=== PATIENT | male | born 1955 | race Caucasian/White ===

== ENCOUNTER 2020-12-21 09:12 | Outpatient (CLI) | payer MEDICARE, OTHER, SELFPAY | END 2020-12-21 09:13 | disposition home or self-care (01) | LOC: ANHCOVIDVC 09:12 | PROVIDERS: PCP Family Medicine | DX: Z23 Encounter for immunization (principal) | CPT/HCPCS: 0001A; 91300 ==

== ENCOUNTER 2021-01-11 09:11 | Outpatient (CLI) | payer MEDICARE, OTHER, SELFPAY | END 2021-01-11 09:12 | disposition home or self-care (01) | LOC: ANHCOVIDVC 09:11 | PROVIDERS: PCP Family Medicine | DX: Z23 Encounter for immunization (principal) | CPT/HCPCS: 0002A; 91300 ==

== ENCOUNTER → 2021-03-01 08:18 | Outpatient (CLI) | payer MEDICARE, OTHER, SELFPAY ==
--- NOTE | ~2021-03-01 | XR_ITS ---
XR foot LT 2V DATE: 03/01/2021 08:33 INDICATION: Mid left foot pain. No known injury. TECHNIQUE: AP and lateral views COMPARISON: None FINDINGS: There is slight plantar and posterior calcaneal enthesopathy. No fracture or dislocation, periosteal reaction or bone destruction. No erosive changes. Joint spaces are relatively preserved. IMPRESSION: Slight plantar and posterior calcaneal enthesopathy Reviewed, dictated and finalized at location D.
== END ==
PROVIDERS: PCP Family Medicine; Visit Provider Physician Assistant Medical
DX: M77.32 Calcaneal spur, left foot (principal)
CPT/HCPCS: 73620

== ENCOUNTER 2022-03-31 09:03 | Outpatient (CLI) | payer MEDICARE, OTHER, SELFPAY ==
--- NOTE | ~2022-03-31 | XR_ITS ---
XR chest 2V 03/31/2022 09:34 Indication: Shortness of breath. Procedure: 2 view chest Comparison: 07/31/2016 Findings: Heart size normal. No focal air space disease, pulmonary edema, pleural effusion or suspect ed pneumothorax. There is calcified granuloma right lung base. Impression: 1: No acute cardiopulmonary disease. Reviewed, dictated and finalized at location A. Impression: 1: No acute cardiopulmonary disease.
[2022-03-31 09:31] LABS: Hemoglobin 13.9 g/dL (14.0-18.0); Mean Corpuscular HGB Conc 33.1 g/dl (32-36); Mean Corpuscular Hemoglobin 31.3 pg (26-34); Mean Corpuscular Volume 94.6 fl (80-100); Mean Platelet Volume 9.7 fl (7.4-10.4); Platelet Count Result 193 k/mm3 (150-375); Red Blood Count 4.44 M/mm3 (4.6-6.20); Red Cell Distribution Width 13.4 % (11.5-14.5); White Blood Count 9.1 K/mm3 (4.5-10.0)
--- NOTE | 2022-03-31 09:38 | ECG_ITS ---
Measurements Intervals [place] Rate: 54 P: 62 [place]: 173 QRS: -20 QRSD: 95 T: 43 QT: 424 QTc: 403 Interpretive Statements SINUS BRADYCARDIA LEFT AXIS DEVIATION ABNORMAL ECG NO PREVIOUS ECG AVAILABLE FOR COMPARISON Electronically Signed On 03-31-2022 14:40:28 CDT by Damien Carrillo M.D.
[2022-03-31 09:48] LABS: Anion Gap 4 mmol/L (8-16); Blood Urea Nitrogen 17 mg/dL (9-20); Calcium 8.6 mg/dL (8.4-10.2); Carbon Dioxide 27 mmol/L (22-30); Chloride 108 mmol/L (98-107); Cholesterol 164 mg/dL (0-200); Estimated Glomerular Filt Rate > 60; Glucose 104 mg/dL (65-110); HDL Direct 36 mg/dL; Sodium 139 mmol/L (137-145); Triglycerides 79 mg/dL (<150)
[2022-03-31 10:03] LABS: LDL Cholesterol Direct 98 mg/dL
[2022-03-31 10:18] LABS: Prostate Specific Antigen 1.3 ng/mL (< OR = 4.0)
[2022-04-05 13:58] LABS: Testosterone Free 35.3 pg/mL (35.0-155.0); Testosterone Total 228 ng/dL (250-1100)
== END 2022-03-31 09:04 | disposition home or self-care (01) ==
PROVIDERS: PCP Family Medicine; Visit Provider Nurse Practitioner Family
DX: E78.6 Lipoprotein deficiency (principal); Z12.5 Encounter for screening for malignant neoplasm of prostate; R73.01 Impaired fasting glucose; R53.83 Other fatigue; R06.02 Shortness of breath
CPT/HCPCS: 36415; 71046; 80048; 80061; 84153; 84402; 84403; 84443; 85027; 93005; G0103

== ENCOUNTER 2022-04-21 08:38 | Outpatient (CLI) | payer MEDICARE, OTHER, SELFPAY ==
--- NOTE | ~2022-04-21 | NM_ITS ---
EXAMINATION: NM tam stress w perfusion DATE: 04/21/2022 10:56 INDICATION: Dyspnea on exertion TECHNIQUE: Rest images were obtained following intravenous administration of 9.8 mCi Tc99m tetrofosmi n (Myoview). The patient was infused intravenously with Lexiscan (Regadenoson). Then, 30.74 mCi Tc99m tetrofosmin (Myoview) was administered intravenously, and stress images were obtained in supine posi tion. Additional post stress images were obtained in prone position.. Data was reconstructed into danae rt axis and horizontal and vertical long axis SPECT images. Gated SPECT images were also obtained. COMPARISON: None. FINDINGS: There are likely artifactual perfusion defects on the supine imaging at the mid inferoseptal and apic al septal segments which normalizes with prone imaging. Mild fixed perfusion defect on both rest and stress images consistent with infarct which extends into the apical inferior and apical lateral segm ents which are partially reversible consistent with combination of infarct and ischemia. There is robert e additional mild reversible ischemia in both the supine and prone post stress images at the apical a nterior segment. There is normal left ventricular chamber size, wall motion and ejection fraction. Left ventricular ejection fraction measures 57%. IMPRESSION: 1. Mild nonreversible infarct at the apical, apical inferior and apical lateral segments with superim posed mild reversible ischemia at the both apical inferior apical lateral segments and additional mil d ischemia at the apical anterior segment. 2. Left ventricular ejection fraction measuring 57%. Reviewed, dictated and finalized at location A. IMPRESSION: 1. Mild nonreversible infarct at the apical, apical inferior and apical lateral segments with superimposed mild reversible ischemia at the both apical inferio r apical lateral segments and additional mild ischemia at the apical anterior s egment. 2. Left ventricular ejection fraction measuring 57%.
--- NOTE | 2022-04-21 08:48 | EST_ITS ---
Patient Info Name: Tito Grubbs Age: 66 years : 1955 Gender: Male Ht: 67 in Wt: 165 lbs BSA: 1.89 m2 HR: 75 bpm BP: 142 / 92 mmHg Exam Date: 04/21/2022 9:47 AM Exam Location: [facility] Stress Patient Status: Outpatient Admit Date: 04/21/2022 Staff Ordering Physician: Katie Quintanilla Attending Provider: Katie Quintanilla Exam Type: CA stress tam w NM Study Info Indications R06.02 - Shortness of breath A regadenoson stress test was performed. Summary 1. 1. Negative lexiscan stress test for ischemic ST changes by ECG criteria. 2. 2. Baseline hypertension. 3. 3. Nuclear scan to follow and will be reported separately. Please correlate with it. 4. 4. Patient informed of the above results. Protocol: Lexiscan Stress ECG Details Stage: REST Duration (min): 2 min : 43 sec HR (bpm): 66 SBP (mmHg): 142 DBP (mmHg): 92 Stage: REST Duration (min): 17 min : 41 sec HR (bpm): 64 SBP (mmHg): 142 DBP (mmHg): 92 Stage: STAGE 1 Duration (min): 0 min : 59 sec HR (bpm): 83 SBP (mmHg): 130 DBP (mmHg): 88 Stage: RECOVERY Duration (min): 1 min : 0 sec HR (bpm): 86 SBP (mmHg): 130 DBP (mmHg): 88 Stage: RECOVERY Duration (min): 2 min : 0 sec HR (bpm): 83 SBP (mmHg): 130 DBP (mmHg): 88 Stage: RECOVERY Duration (min): 3 min : 0 sec HR (bpm): 78 SBP (mmHg): 140 DBP (mmHg): 89 Stage: RECOVERY Duration (min): 3 min : 4 sec HR (bpm): 78 SBP (mmHg): 140 DBP (mmHg): 89 Rest HR: 64 bpm Peak HR: 89 bpm Rest Sys BP: 142 mmHg Peak Sys BP: 140 mmHg Max Pred HR: 152 bpm % Max Pred HR: 59 % Target HR: 129 bpm Max RPP: 12,460 bpm*mmHg Termination Reason: Completed protocol Cardiac Symptoms: Shortness of breath Total Time: 1 min : 0 sec Rest Brannon BP: 92 mmHg Peak Brannon BP: 89 mmHg Total Dose: 0.4 mg Resting ECG Sinus rhythm, IRBBB. Stress ECG No ST changes. Arrhythmias None. Report Signatures
== END 2022-04-21 08:39 | disposition home or self-care (01) ==
PROVIDERS: PCP Family Medicine; Visit Provider Nurse Practitioner Family
DX: R06.02 Shortness of breath (principal); R94.31 Abnormal electrocardiogram [ECG] [EKG]
CPT/HCPCS: 78452; 93017; A9502; J2785

== ENCOUNTER 2022-06-14 09:35 | Outpatient (CLI) | payer MEDICARE, OTHER, SELFPAY ==
[2022-06-14 10:07] LABS: Hematocrit 49.8 % (42.0-52.0); Hemoglobin 16.4 g/dL (14.0-18.0)
[2022-06-20 13:45] LABS: Testosterone Free 240.5 pg/mL (35.0-155.0); Testosterone Total 1069 ng/dL (250-1100)
== END 2022-06-14 09:36 | disposition home or self-care (01) ==
PROVIDERS: PCP Family Medicine; Visit Provider Physician Assistant Medical
DX: R79.89 Other specified abnormal findings of blood chemistry (principal)
CPT/HCPCS: 36415; 84402; 84403; 85014; 85018

== ENCOUNTER 2022-10-05 08:25 | Outpatient (CLI) | payer MEDICARE, SELFPAY ==
[2022-10-05 09:26] LABS: Hematocrit 55.9 % (42.0-52.0); Hemoglobin 18.2 g/dL (14.0-18.0); Mean Corpuscular HGB Conc 32.6 g/dl (32-36); Mean Corpuscular Hemoglobin 30.4 pg (26-34); Mean Corpuscular Volume 93.5 fl (80-100); Platelet Count Result 198 k/mm3 (150-375); Red Blood Count 5.98 M/mm3 (4.6-6.20); Red Cell Distribution Width 15.4 % (11.5-14.5); White Blood Count 11.3 K/mm3 (4.5-10.0)
[2022-10-12 12:21] LABS: Testosterone Free 221.9 pg/mL (35.0-155.0); Testosterone Total 828 ng/dL (250-1100)
== END 2022-10-05 08:26 | disposition home or self-care (01) ==
PROVIDERS: PCP Family Medicine; Visit Provider Family Medicine
DX: D64.9 Anemia, unspecified (principal); R79.89 Other specified abnormal findings of blood chemistry
CPT/HCPCS: 36415; 84402; 84403; 85027

== ENCOUNTER 2022-11-20 09:27 | Outpatient (CLI) | payer MEDICARE, SELFPAY ==
[2022-11-20 10:00] LABS: Hematocrit 53.8 % (42.0-52.0); Hemoglobin 17.6 g/dL (14.0-18.0)
[2022-11-27 13:39] LABS: Testosterone Free 163.7 pg/mL (35.0-155.0); Testosterone Total 652 ng/dL (250-1100)
== END 2022-11-20 09:28 | disposition home or self-care (01) ==
LOC: ANHLAB 09:29
PROVIDERS: PCP Family Medicine; Visit Provider Family Medicine
DX: R79.89 Other specified abnormal findings of blood chemistry (principal)
CPT/HCPCS: 36415; 84402; 84403; 85014; 85018

== ENCOUNTER 2023-02-26 08:58 | Outpatient (CLI) | payer MEDICARE, SELFPAY ==
[2023-02-26 09:47] LABS: Hemoglobin 18.2 g/dL (14.0-18.0)
[2023-03-03 15:17] LABS: Testosterone Free 229.1 pg/mL (35.0-155.0); Testosterone Total 888 ng/dL (250-1100)
== END 2023-02-26 08:59 | disposition home or self-care (01) ==
PROVIDERS: PCP Family Medicine; Visit Provider Nurse Practitioner Family
DX: R79.89 Other specified abnormal findings of blood chemistry (principal)
CPT/HCPCS: 36415; 84402; 84403; 85014; 85018

== ENCOUNTER 2023-03-17 09:40 | Emergency (ER) | payer MEDICARE, SELFPAY ==
--- NOTE | ~2023-03-17 | XR_ITS ---
XR wrist LT min 3V DATE: 03/17/2023 10:03 INDICATION: Wrist injury, pain TECHNIQUE: 4 views COMPARISON: None FINDINGS: There is mild osteoarthritis at the first carpometacarpal joint and first digit interphalan geal joint. No fracture, dislocation, periosteal reaction or bone destruction is detected. IMPRESSION: No fracture or dislocation of the left wrist is detected Reviewed, dictated and finalized at location A.
--- NOTE | ~2023-03-17 | XR_ITS ---
XR hand LT min 3V DATE: 03/17/2023 10:03 INDICATION: Injury, pain TECHNIQUE: 3 views COMPARISON: None FINDINGS: There is prominent soft tissue swelling of the hand and to a lesser extent wrist. Mild osteoarthritis at the first carpometacarpal and multiple interphalangeal joints. IMPRESSION: Prominent soft tissue swelling No fracture or dislocation Polyarticular osteoarthritis Reviewed, dictated and finalized at location A.
[2023-03-17 09:40] VITALS: BP 147/70; PULSE 86; RESP 16; TEMP 36.4; O2SAT 97
--- NOTE | 2023-03-17 09:59 | ED.UPPEXIN ---
HPI - Extremity Injury (Upper) General Chief Complaint: Extremity Injury, Upper Stated Complaint: L HAND CRUSH INJURY Time Seen by Provider: 03/17/23 09:51 Source: patient Mode of arrival: ambulatory Limitations: no limitations History of Present Illness HPI narrative: 67-year-old male [id number] presents today with complaints of left hand injury prior to arrival. Patient states he was loading logs onto a trailer when 1 got away. Left hand got crushed in between 2 logs. Patient states full mobility after injury but currently there is significant swelling noted to the hand. Laceration noted to the base of the fourth digit on palmar side. Sensation intact. Capillary refill less than 3 seconds. complaint: injury to: left Other injuries: none Handedness: right Place: home Related Data Home Medications Medication Instructions Recorded Confirmed rosuvastatin 40 mg tablet 40 mg PO DAILY 03/05/23 03/05/23 Allergies Allergy/AdvReac Type Severity Reaction Status Date / Time Penicillins Allergy Unknown Unknown Verified 03/05/23 08:47 Review of Systems Review of Systems: CONSTITUTIONAL: Denies fever, chills, or sweats. CARDIOVASCULAR: Denies chest pain, palpitations, or edema. RESPIRATORY: Denies cough or dyspnea. SKIN: Denies rash or itching. MUSCULOSKELETAL: Swelling to left hand with laceration. Denies back pain. NEUROLOGIC: Denies headache, numbness, dizziness, or weakness. [facility] Past Medical History Medical History Acute pain of left knee Adult BMI 26.0-26.9 kg/sq m BMI 27.0-27.9,adult Coronary artery disease Dietary counseling and surveillance (04/29/18) Effusion, left knee Elevated fasting glucose Encounter for immunization Encounter for other specified surgical aftercare Encounter for screening for malignant neoplasm of prostate Erectile dysfunction Left knee DJD Left knee DJD Routine physical examination Screening for colon cancer Screening for diabetes mellitus Screening for lipid disorders Tobacco abuse Trigger middle finger of right hand Wheezing Surgical History Surgical History History of knee surgery Family History Family History Father Family history of heart disease in male family member before age 55 Acute myocardial infarction Heart disease Mother Glaucoma Sibling No problems noted. 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 HEAD: Normocephalic, atraumatic. NECK: Supple. No adenopathy or masses. CHEST: Clear to auscultation. No respiratory distress. No wheezes rales or rhonchi HEART: Regular rate and rhythm. No murmur heard. Normal peripheral pulses. EXTREMITIES: Left hand with significant swelling noted. Sensation intact. Capillary refill less than 3 seconds. Laceration noted to base of fourth digit on palmar side approx 3 cm. Lacertion to 5th digit lateral to nail without nail envolvement. Range of motion limited due to swelling. Skin tear to dorsal side of left hand. SKI
== END 2023-03-17 12:21 | disposition home or self-care (01) ==
PROVIDERS: Emergency Provider Nurse Practitioner Family; PCP Family Medicine
DX: S61.215A Laceration without foreign body of left ring finger without damage to nail, initial encounter (principal); W23.0XXA Caught, crushed, jammed, or pinched between moving objects, initial encounter; I25.10 Atherosclerotic heart disease of native coronary artery without angina pectoris; F17.290 Nicotine dependence, other tobacco product, uncomplicated
CPT/HCPCS: 12002; 73110; 73130; 99283

== ENCOUNTER 2023-03-19 09:47 | Outpatient (CLI) | payer MEDICARE, SELFPAY ==
--- NOTE | ~2023-03-19 | XR_ITS ---
Supine and upright views of the abdomen Clinical history: Hematuria, renal stone COMPARISON: 04/30/2018 Findings: Bowel gas pattern is nonspecific. No free air or bowel obstruction evident. There are proba ble right renal stones measuring up to 8 mm in diameter. Possible small left renal stones measuring u p to 3 mm. No abnormal mass lesion or calcification is seen. Osseous structures are intact. Impression: Probable bilateral nephrolithiasis, as detailed above, right stones larger than left. Reviewed, dictated and finalized at location M. Impression: Probable bilateral nephrolithiasis, as detailed above, right stones larger than left.
== END 2023-03-19 09:48 | disposition home or self-care (01) ==
PROVIDERS: PCP Family Medicine; Visit Provider Nurse Practitioner Family
DX: R31.9 Hematuria, unspecified (principal)
CPT/HCPCS: 74018

== ENCOUNTER 2023-08-10 07:52 | Outpatient (CLI) | payer MEDICARE, SELFPAY ==
--- NOTE | ~2023-08-10 | CT_ITS ---
EXAMINATION: CT abdomen pelvis wo con DATE: 08/10/2023 08:13 INDICATION: Kidney stones TECHNIQUE: Computed tomography (CT) of the abdomen and pelvis was performed without intravenous contr ast. Automated exposure control and iterative reconstruction technique were employed. Exam dose: 442 .08 mGy-cm total exam DLP. COMPARISON: 03/19/2023 KUB FINDINGS: Right lower lobe calcified pulmonary granuloma. The lung bases are clear of infiltrate or c onsolidation. Normal heart size. No pericardial or pleural effusion. Small sliding hiatal hernia. The liver, gallbladder, bile ducts, spleen, pancreas, pancreatic duct, and adrenal glands are unremar kable on this limited noncontrast examination. Multiple bilateral nonobstructing renal calculi, slightly more numerous and larger on the right, the largest on the right measuring up to 6.9 by 9.2 mm with attenuation of 1304 Hounsfield units, the lar gest on the left approximately 2.2 x 6.5 mm. No ureteral calculus or hydroureteronephrosis. No renal mass lesion is evident. There is atherosclerotic calcification but normal caliber of the abdominal aorta and iliac and femora l arteries. No intraperitoneal or retroperitoneal or pelvic mass lesion or adenopathy or ascites. There is prostate enlargement and multiple prostate calcifications. The urinary bladder appears unrem arkable on this noncontrast examination. Diverticulosis of the left colon; no CT evidence of diverticulitis. No bowel obstruction, bowel wall thickening, pneumatosis or intraperitoneal free air. Small fat-containing umbilical hernia. Degenerative spurring of the thoracic and lumbar spine. Moderate degenerative disc disease at L4-5 an d severe degenerative disc disease at L5-S1. No suspicious osteolytic or osteoblastic lesions. IMPRESSION: Bilateral nonobstructive nephrolithiasis Small sliding hiatal hernia Diverticulosis of the colon; no CT evidence of diverticulitis Reviewed, dictated and finalized at Location A. Reviewed, dictated and finalized at location A.
--- NOTE | ~2023-08-10 | XR_ITS ---
XR abdomen/kub 1V 08/10/2023 08:29 Indication: Renal stone Procedure: KUB Comparison: 03/19/2023 Findings: There are bilateral renal stones. Largest in the right kidney measures 1 cm. Bowel gas augustine ha nonobstructive. Moderate lumbar spondylosis. There are prostate calcifications. Moderate osteoart hritis of the right hip. No acute osseous abnormality. Impression: 1: Bilateral nephrolithiasis. Reviewed, dictated and finalized at location B. Impression: 1: Bilateral nephrolithiasis.
== END 2023-08-10 07:53 | disposition home or self-care (01) ==
PROVIDERS: PCP Family Medicine; Referring Provider Urology; Visit Provider Nurse Practitioner Family
DX: N20.0 Calculus of kidney (principal); R31.9 Hematuria, unspecified; K44.9 Diaphragmatic hernia without obstruction or gangrene; K57.30 Diverticulosis of large intestine without perforation or abscess without bleeding
CPT/HCPCS: 74018; 74176

== ENCOUNTER 2023-09-17 08:35 | Outpatient (CLI) | payer MEDICARE, SELFPAY ==
--- NOTE | 2023-09-17 08:57 | ECG_ITS ---
Measurements Intervals [place] Rate: 76 P: 61 [place]: 150 QRS: -36 QRSD: 100 T: 43 QT: 368 QTc: 415 Interpretive Statements SINUS RHYTHM MARKED LEFT AXIS DEVIATION [QRS AXIS < -30] ABNORMAL ECG COMPARED TO ECG 03/31/2022 09:45:42 NO SIGNIFICANT DIFFERENCE Electronically Signed On 09-17-2023 15:13:36 RACK PRODUCTION WORKER by Damien Carrillo M.D.
[2023-09-17 09:30] LABS: Prothrombin Time 13.5 Seconds (11.1-14.7)
[2023-09-17 09:31] LABS: Partial Thromboplastin Time 29.9 SECONDS (22.3-36.8)
== END 2023-09-17 08:36 | disposition home or self-care (01) ==
PROVIDERS: PCP Family Medicine; Visit Provider Urology
DX: N20.0 Calculus of kidney (principal); E78.00 Pure hypercholesterolemia, unspecified; Z01.818 Encounter for other preprocedural examination
CPT/HCPCS: 36415; 85610; 85730; 87086; 93005

== ENCOUNTER 2023-09-21 03:02 | Day surgery (SDC) | payer MEDICARE, SELFPAY ==
[2023-09-13 15:11] VITALS: BMI 26.6
--- NOTE | 2023-09-13 15:24 | PC.NURSE ---
Addendum entered by Christy Villareal RN 09/14/23 12:34: HOLD ASPIRIN FOR 7 DAYS PRIOR TO PROCEDURE, LAST DOSE TO TAKE WOULD BE 09/14. ALSO LEFT VOICE MAIL FOR PT AT [phone]. Original Note: Report to the Outpatient Waiting Room, entrance under the green pavilion located off [facility], at time _0630_ on date _09/21/23_. Planned Procedure Time: _0830_. Time changes happen often and if your time is changed the preop area will call you the afternoon before. - You and your visitor will be asked to self-screen and do not enter if you have any COVID symptoms. - A mask is optional within the hospital at this time. Patients may have clear liquids (water, carbonated beverages, clear teas, apple juice) until 3 hours prior to surgery (0530 AM) with a maximum of 20 ounces. - No food from midnight until time of surgery Take the following medications with a SIP of water the morning of surgery: __NONE____ DO NOT STOP ANY OF YOUR OTHER PRESCRIPTION MEDICATIONS PRIOR TO SURGERY ?EXCEPT THE FOLLOWING Medications to discontinue per physician __NONE____, Date to take last dose Please no make-up, nail kinyarwanda, hairspray, perfume, deodorant, or body powder the day of surgery. No jewelry (including any body piercings) or valuables the day of surgery, leave them at home. Please take a shower or bath the night before, or the morning of, surgery with an antibacterial soap. Wear comfortable, loose fitting clothing. - Jewelry must be removed prior to entering the operating room. Rings and piercings that are not removed may be cut off. - The hospital will not accept responsibility for valuables. - Please leave all valuables, including medications, at home the day of surgery. If you are going home after surgery, a licensed sales route driver helper must drive you home. - NO public transportation without another adult if you receive anesthesia. - We recommend that an adult stay with you for 24 hours following discharge. - We also recommend that you do not drive, make important decision, drink alcoholic beverages, or take any drugs that were not prescribed by your health care provider for at least 24 hours after your discharge time. Follow any additional instructions given to you from your surgeon. If you or anyone in your household have experienced Covid symptoms in the past week, please notify your surgeon or the nurse liaison at the phone number below for possible testing. Telephone instructions given to _PATIENT_and asked if any additional questions and then verbalized understanding. Patient advised to call surgeon office or pre surgery nurse liaison [phone] if any additional questions.
--- NOTE | ~2023-09-21 | XR_ITS ---
Supine and upright views of the abdomen Clinical history: Lithotripsy COMPARISON: 08/10/2023 Findings: Bowel gas pattern is nonspecific. No evidence for obstruction or free air. Right nephrolith iasis is unchanged. Suspected very small left renal stones present. Osseous structures are intact. Impression: Bilateral nephrolithiasis, right worse than left. Reviewed, dictated and finalized at [facility]. ATTENDANT Impression: Bilateral nephrolithiasis, right worse than left.
[2023-09-21 07:11] VITALS: BP 122/80; PULSE 81; RESP 16; TEMP 36.9; O2SAT 95
--- NOTE | 2023-09-21 07:19 | WPDHPUPDATE1 ---
History and Physical Update Update Date/Time: 09/21/23 07:19 History and Physical has been reviewed, including an updated exam of the patient. There are NO changes in the patient's condition. Risks, benefits, and alternatives have been discussed and questions answered. Patient agrees to proceed with procedure. Proceed with right renal eswl
[2023-09-21] MEDS: LACTATED RINGERS 1,000 ML 30 ML IV CONT (07:32)
--- NOTE | 2023-09-21 07:54 | WPDANESEPPF ---
Anes - Initial Pre Proc Eval Procedure: Operation Date: 09/21/23 08:30 Proposed Procedures p Right Renal Extracorporeal Shock Wave Lithotripsy - Bassam Cummings MD Date/Time: 09/21/23 07:54 Surgeon: Bassam Cummings MD Pre Op Diagnosis: right renal stone Patient Data Age: 68 Gender: M Height: 1.7 m Weight: 78 kg Last Vital Signs Temp 36.9 C 09/21/23 07:11 Pulse 81 09/21/23 07:11 Resp 16 09/21/23 07:11 BP 122/80 09/21/23 07:11 Pulse Ox 95 09/21/23 07:11 O2 Del Method Room Air 09/21/23 07:11 Allergies Allergy/AdvReac Type Severity Reaction Status Date / Time Penicillins Allergy Unknown Unknown- Verified 09/21/23 06:32 A CHILD Home Medications Medication Instructions Recorded Confirmed Type rosuvastatin 40 mg tablet 40 mg PO DAILY 03/05/23 09/13/23 History sildenafil 100 mg tablet 100 mg PO DAILY PRN sexual 03/05/23 09/13/23 Rx activity #30 tabs aspirin 81 mg tablet,delayed 81 mg PO DAILY 08/29/23 09/13/23 History release (Adult Aspirin Regimen) testosterone cypionate 200 mg/mL 75 mg IM .every 2 weeks 09/13/23 09/13/23 History intramuscular oil Patient hx anesthesia problems: none Family hx anesthesia problems: none Results Review: All pre-operative results and documents have been reviewed as part of the pre-operative evaluation. [facility] Past Medical History Medical History Acute pain of left knee BMI 26.0-26.9,adult Coronary artery disease Dietary counseling and surveillance (04/29/18) Effusion, left knee Elevated blood pressure reading Elevated fasting glucose Encounter for immunization Encounter for other specified surgical aftercare Encounter for screening for malignant neoplasm of prostate Erectile dysfunction Left knee DJD Routine physical examination Screening for colon cancer Screening for diabetes mellitus Screening for lipid disorders Tobacco abuse Trigger middle finger of right hand Wheezing Surgical History Surgical History History of knee surgery Family History Family History Father Family history of heart disease in male family member before age 55 Acute myocardial infarction Heart disease Mother Glaucoma Sibling No problems noted. Social History Social History Smoking status: Current every day smoker Tobacco type: cigars Second hand tobacco smoke exposure: Yes Additional smoking assessment comments: 3 CIGARS/DAY/10YRS Alcohol intake: never Substance use: never Substance use type: does not use Lack of Transportation: No Lack of Food: Never True Current Housing: I Have Housing Concerned About Future Housing: No Difficulty Paying Gas/Electric Bills: No Difficulty Paying for Meds: No Currently Unemployed: No Education: High School Diploma/GED Difficulty w/ Childcare or Family Care: No Living arrangements: alone Occupation/Education: retired 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 Informed Consent: The patient's anesthetic plan and its attendant risks and benefits were discussed with the patient/family/POA. Questions were solicited and ans
[2023-09-21] MEDS: ceFAZolin 2 GM/D5W 50 ML 2 GM/50 ML BAG IVPB (08:34)
--- NOTE | 2023-09-21 09:16 | W.PM.PROC2 ---
Procedure Note - Detailed Date of Procedure 09/21/23 Pre-op Diagnosis right renal stone-2 stones each measuring 8-10 mm Post-op Diagnosis Same Procedure Performed Lithotripsy of right renal calculi-1600 shocks to upper pole stone, 900 shocks to more lateral stone Surgeon Bassam Cummings MD Anesthesia General Description of Procedure Patient is taken to the operative suite correctly identified. Once anesthesia was obtained the upper pole stone was localized in both planes. After 1600 shocks there appeared to be fairly good fragmentation. The more lateral stone was then visualized in both planes. The remaining 900 shocks were given to the stone. Patient tolerated procedure well without any complications was taken recovery stable condition. He will follow-up in 7-10 days with KUB. This completes dictation. Please send a copy of op note to my office Estimated Blood Loss 0 Drains No Packing No Pathology None sent Complications No immediate complications Condition Stable Disposition PACU
[2023-09-21 09:27] VITALS: BP 132/85; PULSE 90; RESP 16; TEMP 36.3; O2SAT 98
[2023-09-21 09:35] VITALS: BP 121/93; PULSE 85; RESP 21; O2SAT 99
[2023-09-21 09:50] VITALS: BP 118/86; PULSE 84; RESP 12; O2SAT 99
[2023-09-21 10:00] VITALS: BP 134/88; PULSE 79; RESP 12
[2023-09-21 10:30] VITALS: BP 124/90; PULSE 7; RESP 12
== END 2023-09-21 10:42 | disposition home or self-care (01) ==
PROVIDERS: PCP Family Medicine; Visit Provider Urology
PROC: (CPT 50590; principal; 2023-09-21 08:30)
DX: N20.0 Calculus of kidney (principal); I25.10 Atherosclerotic heart disease of native coronary artery without angina pectoris; Z79.82 Long term (current) use of aspirin; F17.290 Nicotine dependence, other tobacco product, uncomplicated
CPT/HCPCS: 50590; 74018; J0690; J1100; J2371; J2405; J2704; J3010; J7120

== ENCOUNTER 2023-10-05 11:05 | Outpatient (CLI) | payer MEDICARE, SELFPAY ==
--- NOTE | ~2023-10-05 | XR_ITS ---
EXAMINATION: XR abdomen/kub 1V INDICATION: Calcium kidney stone TECHNIQUE: Supine views of the abdomen were obtained on 2 radiographs. COMPARISON: 09/21/2023 FINDINGS: The previously identified stones of the right kidney appear to be fragmented and less dense than on the comparison examination, consistent with interval lithotripsy. No stone fragments are kellen ntified along the expected course of the right ureter or in the urinary bladder. Punctate left nephro lithiasis appears unchanged. There are calcifications of the prostate. A bone island is noted in the left sacrum. There is moderate osteoarthritis of the right hip and mild osteoarthritis of the left hi p. The bowel gas pattern is normal. IMPRESSION: 1. Fragmentation and decreased density of the previously identified right kidney stones, likely due t o interval lithotripsy. 2. Left nephrolithiasis. Reviewed, dictated and finalized at location B. IFIED NURSES AIDE IMPRESSION: 1. Fragmentation and decreased density of the previously identified right kidne y stones, likely due to interval lithotripsy. 2. Left nephrolithiasis.
== END 2023-10-05 11:06 | disposition home or self-care (01) ==
PROVIDERS: PCP Family Medicine; Visit Provider Urology
DX: N20.0 Calculus of kidney (principal)
CPT/HCPCS: 74018

== ENCOUNTER 2023-11-02 10:52 | Outpatient (CLI) | payer MEDICARE, SELFPAY ==
--- NOTE | ~2023-11-02 | XR_ITS ---
EXAMINATION: XR abdomen/kub 1V INDICATION: Calcium kidney stone TECHNIQUE: Supine views of the abdomen were obtained on 2 radiographs. COMPARISON: 10/05/2023 FINDINGS: There are groups of small calcifications in the right kidney with individual calcifications measuring up to 3 mm in size. There is a possible 2 mm stone in the proximal right ureter at the lev el of the right L3 transverse process. Left kidney stones measure up to 2 mm. Again noted is a bone i sland in the left sacrum. There is moderate osteoarthritis of the right hip and mild osteoarthritis o f the left hip. The bowel gas pattern is normal. IMPRESSION: 1. Right nephrolithiasis with possible stone in the proximal right ureter. Correlate for right flank pain. 2. Left nephrolithiasis. Reviewed, dictated and finalized at location F. IST INFORMATION ASSISTANT IMPRESSION: 1. Right nephrolithiasis with possible stone in the proximal right ureter. Colleen elate for right flank pain. 2. Left nephrolithiasis.
== END 2023-11-02 10:53 | disposition home or self-care (01) ==
PROVIDERS: PCP Family Medicine; Visit Provider Urology
DX: N20.0 Calculus of kidney (principal)
CPT/HCPCS: 74018

== ENCOUNTER 2023-12-14 11:11 | Outpatient (CLI) | payer MEDICARE, SELFPAY ==
--- NOTE | ~2023-12-14 | XR_ITS ---
EXAMINATION: XR abdomen/kub 1V DATE: 12/14/2023 11:30 INDICATION: Calcium kidney stone. TECHNIQUE: A supine view of the abdomen on 2 radiographs was obtained. COMPARISON: CT abdomen and pelvis 08/10/2023 FINDINGS: There are no dilated loops of bowel. There is a moderate volume of stool in the colon. Torrey l obscures the kidneys. There are least 3 stones in right kidney measuring up to 3 mm. There are leas t 3 stones in left kidney measuring up to 3 mm. IMPRESSION: 1. Bilateral kidney stones. Reviewed, dictated and finalized at location A. [facility] IMPRESSION: 1. Bilateral kidney stones.
== END 2023-12-14 11:12 | disposition home or self-care (01) ==
LOC: ANHIMG 11:12
PROVIDERS: PCP Family Medicine; Visit Provider Urology
DX: N20.0 Calculus of kidney (principal)
CPT/HCPCS: 74018

== ENCOUNTER 2024-02-19 08:38 | Outpatient (CLI) | payer MEDICARE, SELFPAY ==
[2024-02-19 09:24] LABS: Basophils Absolute Auto 0.1 K/mm3 (0.0-0.1); Basophils Percent Auto 0.7 % (0.2-1.2); Eosinophils Absolute Auto 0.1 K/mm3 (0-0.3); Eosinophils Percent Auto 0.9 % (0-4.4); Hematocrit 55.3 % (42.0-52.0); Hemoglobin 18.8 g/dL (14.0-18.0); Immature Granulocyte Absolute 0.05 K/mm3 (0.00-0.031); Immature Granulocyte Percent A 0.5 % (0-0.5); Lymphocytes Absolute Auto 1.46 K/mm3 (0.9-3.2); Lymphocytes Percent Auto 14.3 % (18.3-44.2); Mean Corpuscular Hemoglobin 31.8 pg (26-34); Mean Corpuscular Volume 93.6 fl (80-100); Mean Platelet Volume 9.9 fl (7.4-10.4); Monocytes Absolute Auto 1.1 K/mm3 (0.1-0.6); Monocytes Percent Auto 10.8 % (2.6-8.5); Neutrophils Absolute Auto 7.4 K/mm3 (1.3-6.7); Neutrophils Percent Auto 72.8 % (45.5-73.1); Platelet Count Result 163 k/mm3 (150-375); Red Blood Count 5.91 M/mm3 (4.6-6.20); Red Cell Distribution Width 13.9 % (11.5-14.5); White Blood Count 10.2 K/mm3 (4.5-10.0)
[2024-02-19 09:43] LABS: Alanine Aminotransferase 42 U/L (6-50); Albumin Level 4.5 g/dL (3.5-5.1); Alkaline Phosphatase 59 U/L (38-126); Anion Gap 5 mmol/L (4-12); Aspartate Amino Transferase 27 U/L (17-59); Bilirubin,Total 0.9 mg/dL (0.2-1.3); Blood Urea Nitrogen 15 mg/dL (9-20); Calcium 9.5 mg/dL (8.4-10.2); Carbon Dioxide 27 mmol/L (22-30); Chloride 107 mmol/L (98-107); Cholesterol 101 mg/dL (0-200); Estimated Glomerular Filt Rate > 60; Glucose 104 mg/dL (65-110); HDL Direct 37 mg/dL; Potassium 4.1 mmol/L (3.4-5.0); Sodium 139 mmol/L (137-145); Triglycerides 77 mg/dL (<150)
[2024-02-19 09:51] LABS: LDL Cholesterol Direct 58 mg/dL
[2024-02-19 10:10] LABS: Prostate Specific Antigen 2.8 ng/mL (< OR = 4.0)
[2024-02-22 20:58] LABS: Testosterone Total 383 ng/dL (250-1100)
== END 2024-02-19 08:39 | disposition home or self-care (01) ==
PROVIDERS: PCP Family Medicine; Visit Provider Physician Assistant
DX: D64.9 Anemia, unspecified (principal); I10 Essential (primary) hypertension; R73.01 Impaired fasting glucose; Z79.890 Hormone replacement therapy; Z12.5 Encounter for screening for malignant neoplasm of prostate; I25.10 Atherosclerotic heart disease of native coronary artery without angina pectoris
CPT/HCPCS: 36415; 80053; 80061; 84153; 84403; 84443; 85025; G0103

== ENCOUNTER 2024-03-19 11:20 | Outpatient (CLI) | payer MEDICARE, SELFPAY ==
[2024-03-19 12:49] LABS: Basophils Absolute Auto 0.1 K/mm3 (0.0-0.1); Basophils Percent Auto 0.6 % (0.2-1.2); Eosinophils Absolute Auto 0.1 K/mm3 (0-0.3); Eosinophils Percent Auto 0.9 % (0-4.4); Hematocrit 52.8 % (42.0-52.0); Hemoglobin 17.7 g/dL (14.0-18.0); Immature Granulocyte Absolute 0.04 K/mm3 (0.00-0.031); Immature Granulocyte Percent A 0.4 % (0-0.5); Lymphocytes Absolute Auto 1.67 K/mm3 (0.9-3.2); Lymphocytes Percent Auto 17.5 % (18.3-44.2); Mean Corpuscular HGB Conc 33.5 g/dl (32-36); Mean Corpuscular Hemoglobin 32.1 pg (26-34); Mean Corpuscular Volume 95.7 fl (80-100); Mean Platelet Volume 9.8 fl (7.4-10.4); Monocytes Absolute Auto 1.4 K/mm3 (0.1-0.6); Monocytes Percent Auto 14.6 % (2.6-8.5); Neutrophils Absolute Auto 6.3 K/mm3 (1.3-6.7); Platelet Count Result 160 k/mm3 (150-375); Red Blood Count 5.52 M/mm3 (4.6-6.20); Red Cell Distribution Width 13.6 % (11.5-14.5); White Blood Count 9.6 K/mm3 (4.5-10.0)
== END 2024-03-19 11:21 | disposition home or self-care (01) ==
PROVIDERS: PCP Family Medicine; Visit Provider Physician Assistant Medical
DX: D58.2 Other hemoglobinopathies (principal)
CPT/HCPCS: 36415; 85025

== ENCOUNTER 2024-07-02 08:50 | Outpatient (CLI) | payer MEDICARE, SELFPAY ==
[2024-07-02 09:33] LABS: Basophils Absolute Auto 0.1 K/mm3 (0.0-0.1); Eosinophils Absolute Auto 0.1 K/mm3 (0-0.3); Eosinophils Percent Auto 1.4 % (0-4.4); Hematocrit 54.9 % (42.0-52.0); Hemoglobin 18.3 g/dL (14.0-18.0); Immature Granulocyte Absolute 0.05 K/mm3 (0.00-0.031); Immature Granulocyte Percent A 0.6 % (0-0.5); Lymphocytes Absolute Auto 1.83 K/mm3 (0.9-3.2); Lymphocytes Percent Auto 20.3 % (18.3-44.2); Mean Corpuscular HGB Conc 33.3 g/dl (32-36); Mean Corpuscular Hemoglobin 31.9 pg (26-34); Mean Corpuscular Volume 95.6 fl (80-100); Mean Platelet Volume 9.7 fl (7.4-10.4); Monocytes Percent Auto 10.8 % (2.6-8.5); Neutrophils Percent Auto 65.9 % (45.5-73.1); Platelet Count Result 148 k/mm3 (150-375); Red Blood Count 5.74 M/mm3 (4.6-6.20); Red Cell Distribution Width 13.3 % (11.5-14.5)
[2024-07-06 10:58] LABS: Testosterone Free 236.9 pg/mL (30.0-135.0); Testosterone Total 920 ng/dL (250-1100)
== END 2024-07-02 08:51 | disposition home or self-care (01) ==
PROVIDERS: PCP Family Medicine
DX: R71.8 Other abnormality of red blood cells (principal); R79.89 Other specified abnormal findings of blood chemistry
CPT/HCPCS: 36415; 84402; 84403; 85025

== ENCOUNTER 2024-11-13 11:00 | Outpatient (CLI) | payer MEDICARE, SELFPAY ==
--- NOTE | ~2024-11-13 | XR_ITS ---
EXAMINATION: XR abdomen/kub 1V DATE: 11/13/2024 11:18 INDICATION: Calcium kidney stones. TECHNIQUE: A supine view of the abdomen on 2 radiographs was obtained. COMPARISON: CT abdomen and pelvis 08/10/2023 FINDINGS: There are no dilated loops of bowel. There is a 4 mm stone in right kidney. There are at le ast 8 stones in left kidney measuring up to 3 mm. IMPRESSION: 1. Bilateral kidney stones. Reviewed, dictated and finalized at location A. [facility] IMPRESSION: 1. Bilateral kidney stones.
--- OUTSIDE RECORDS SUMMARY | 2024-11-13 12:05 | XMS_ITS | Clinical Summary ---
Author Organization [facility] [place] [address] Address [address] [place] [address] Care Team Providers Care Make Up Worker Name Role Phone Garrick Gray MD Primary Care Provider Allergies No known active allergies Medications testosterone cypionate (DEPO-TESTOTERO NE) 200 mg/mL injection INJECT 1 ML INTO THE MUSCLE EVERY 2 WEEKS 2 Active sildenafiL (VIAGRA) 100 mg tablet TAKE 1 TABLET BY MOUTH ONCE DAILY NEEDED FOR SEXUAL ACTIVITY. ADMINISTER 30 MINUTES TO 4 HOURS BEFORE ACTIVITY 4 Active rosuvastatin (CRESTOR) 40 mg tablet TAKE 1 TABLET BY MOUTH EVERY DAY 90 tablet 2 4 Active aspirin 81 mg enteric coated tablet TAKE 1 TABLET BY MOUTH EVERY DAY 90 tablet 2 4 Active Active Problems No known active problems Medical History Medical History Date Comments Low testosterone Family History Medical History Relation Name Comments Heart attack Father Relation Name Status Comments Father Mother Social History Tobacco Use Types Packs/Day Years Used Date Smoking Tobacco: Former Cigarettes Tobacco Cessation:Counseling Given: Not Answered Personal Safety Answer Date Recorded Getting School Help Needed Not on file 10/20 Sex and Gender Information Value Date Recorded Sex Assigned at Not on file Legal Sex Male 10:20 AM CDT Gender Identity Not on file Sexual Orientation Not on file Obstetrics History Last Filed Vital Signs Vital Sign Reading Time Taken Comments Blood Pressure 138/88 07/23/2024 9:41 AM CDT Pulse 68 07/23/2024 9:41 AM CDT Temperature - - Respiratory Rate - - Oxygen Saturation 94% 07/23/2024 9:41 AM CDT Inhaled Oxygen Concentration - - Weight 78.9 kg (174 lb) 07/23/2024 9:41 AM CDT Height 170.2 cm (5' 7 ) 07/23/2024 9:41 AM CDT Body Mass Index 27.25 07/23/2024 9:41 AM CDT Plan of Treatment Health Maintenance Due Date Last Done Comments Colon Cancer Screening-Colonoscopy 1953 Depression Screening 1953 Fall Risk Assessment 1955 Hepatitis C Screening 1953 DTaP/Tdap/Td Vaccine (1 - Tdap) 1964 Hepatitis B Screening 1971 Zoster Vaccine (1 of 2) 2003 Abdominal Aortic Aneurysm (A AA) Screen 2018 Well Visit 65+ 2018 Covid-19 Vaccine (2023- 5 season) 2024 09/26/2021, 01/11/2021, 12/21/2020 Influenza Vaccine (#1) 2024 , 08/04/2020, 07/11/2019, Additional history exists Pneumococcal vaccine 65+ Completed 08/04/2020, 06/16 Insurance MEDICARE [facility] Address: [id number] [place] [address] COMMERCIAL GENERIC MEDICARE [facility] Address: [facility] [id number] [place] [address] COMMERCIAL GENERIC Care Teams Make Up Worker Relationship Specialty Start Date End Date Garrick Gray MD PCP - General Family Medicine 06/21/22
--- OUTSIDE RECORDS SUMMARY | 2024-11-13 12:05 | XMS_ITS | Referral Summary ---
Author Organization [facility] [place] [address] Address [address] [place] [address] Care Team Providers Care Lead Worker Of Housekeeping And Laundry Name Role Phone Garrick Gray MD Primary [...] Active Active Problems No known active problems Social History Tobacco Use Types Packs/Day Years Used Date Smoking Tobacco: Former Cigarettes Tobacco Cessation:Counseling Given: Not Answered Personal Safety Answer Date Recorded Getting School Help Needed Not on file 10/20 Sex and Gender Information Value Date Recorded Sex Assigned at Not on file Legal Sex Male 10:20 AM CDT Gender Identity Not on file Sexual Orientation Not on file Last Filed Vital Signs Vital Sign Reading [...] 07/23/2024 9:41 AM CDT Plan of Treatment Not on file Insurance MEDICARE [employer]IC [employer] Address: [address] [place] [address] MEDICARE COMMERCIAL GENERIC Care Teams Lead Worker Of Housekeeping And Laundry Relationship Specialty Start Date End Date Garrick Gray MD PCP - General Family Medicine 06/21/22
== END 2024-11-13 11:01 | disposition home or self-care (01) ==
PROVIDERS: PCP Family Medicine; Visit Provider Urology
DX: N20.0 Calculus of kidney (principal)
CPT/HCPCS: 74018

== ENCOUNTER 2025-01-01 11:14 | Outpatient (CLI) | payer MEDICARE, SELFPAY ==
[2025-01-01 12:08] LABS: Alanine Aminotransferase 39 U/L (6-50); Albumin Level 4.3 g/dL (3.5-5.1); Alkaline Phosphatase 71 U/L (38-126); Anion Gap 8 mmol/L (4-12); Aspartate Amino Transferase 23 U/L (17-59); Bilirubin,Total 0.7 mg/dL (0.2-1.3); Blood Urea Nitrogen 10 mg/dL (9-20); Calcium 9.2 mg/dL (8.4-10.2); Carbon Dioxide 26 mmol/L (22-30); Chloride 103 mmol/L (98-107); Estimated Glomerular Filt Rate > 60; Glucose 103 mg/dL (65-110); Potassium 4.2 mmol/L (3.4-5.0); Sodium 137 mmol/L (137-145)
--- OUTSIDE RECORDS SUMMARY | 2025-01-01 12:14 | XMS_ITS | Referral Summary ---
Author Organization [facility] [place] [address] Address [address] [place] [address] Care Team Providers Care Information Technology Assistant Name Role Phone Garrick Gray MD Primary [...] of Treatment Not on file Insurance MEDICARE [employer] GENERIC MEDICARE COMMERCIAL GENERIC Care Teams Information Technology Assistant Relationship Specialty Start Date End Date Garrick Gray MD PCP - General Family Medicine 06/21/22
--- OUTSIDE RECORDS SUMMARY | 2025-01-01 12:14 | XMS_ITS | Clinical Summary ---
Author Organization [facility] Address [address] [place] [address] Care Team Providers Care Automatic Buffing Wheel Former Name Role Phone Garrick Gray MD Primary Care Provider [phone] Allergies Active Allergy Reactions Criticality Noted Date Comments Penicillins Unknown 10/08/2022 Medications albuterol sulfate HFA 108 (90 Base) MCG/ACT inhaler Inhale 2 puffs into the lungs every 4 (four) hours as needed for Wheezing or Shortness of breath (cough). 18 g Active Social History Tobacco Use Types Packs/Day Years Used Date Smoking Tobacco: Some Days Cigars Smokeless Tobacco: Never Tobacco Cessation:Ready to Q uit: Not Asked; Counseling Given: Not Answered Sex and Gender Information Value Date Recorded Sex Assigned at Not on file Legal Sex Male 7:01 AM GUM REMOVER Gender Identity Not on file Sexual Orientation Not on file Last Filed Vital Signs Vital Sign Reading Time Taken Comments Blood Pressure 120/73 10/08/2022 8:25 AM GUM REMOVER Pulse 92 10/08/2022 8:25 AM GUM REMOVER Temperature 36.9 C (98.4 F) 10/08/2022 8:25 AM GUM REMOVER Respiratory Rate 20 10/08/2022 8:25 AM GUM REMOVER Oxygen Saturation 93% 10/08/2022 8:25 AM GUM REMOVER Inhaled Oxygen Concentration - - Weight 77.1 kg (170 lb) 10/08/2022 7:11 AM GUM REMOVER Height 170.2 cm (5' 7 ) 10/08/2022 7:11 AM GUM REMOVER Body Mass Index 26.63 10/08/2022 7:11 AM GUM REMOVER Plan of Treatment Health Maintenance Due Date Last Done Comments Colorectal Cancer Screening Colonoscopy (10 Years) 1953 Pneumococcal Vaccine: 65+ Ye ars (1 of 2 - PCV) 1959 Hepatitis C 1971 DTaP, Tdap and Td Vaccines ( 1 - Tdap) 1972 Zoster Vaccines (1 of 2) 2003 Annual Medicare Wellness Visit 2018 COVID-19 Vaccine (1 - 2023-2 5 season) 2024 Influenza Adult (#1) 2024 RSV Immunization or 60+ Years (1 - 1-dose 75+ series) 2028 Meningococcal B Vaccine Aged Out No l onger eligible based on patient's age to complete this topic Meningococcal Vaccine Aged Out No sekou guero eligible based on patient's age to complete this topic RSV Immunizations Under 20 Months Aged Out No longer eligible based on patient's age to complete this topic Insurance MEDICARE [facility] INS[facility]ANCE Care Teams Automatic Buffing Wheel Former Relationship Specialty Start Date End Date Garrick Gray MD [address] [address] PCP - General FAMILY PRACTICE 10/08/22
--- OUTSIDE RECORDS SUMMARY | 2025-01-01 12:14 | XMS_ITS | Clinical Summary ---
Author Organization [facility] [place] [address] Address [address] [place] [address] Care Team Providers Care Technical Solutions Director Name Role Phone Garrick Gray MD Primary [...] vaccine 65+ Completed 08/04/2020, 06/16 Insurance MEDICARE COMM[employer] GENERIC MEDICARE COMMERCIAL GENERIC Care Teams Technical Solutions Director Relationship Specialty Start Date End Date Garrick Gray MD PCP - General Family Medicine 06/21/22
[2025-01-01 12:36] LABS: Prostate Specific Antigen 2.8 ng/mL (< OR = 4.0)
[2025-01-01 13:11] LABS: Folic Acid 15.7 ng/mL (2.76->20)
[2025-01-01 13:12] LABS: Iron 101 ug/dL (49-181)
[2025-01-01 13:23] LABS: Percent Iron Saturation 31 % (20-50)
[2025-01-01 13:52] LABS: Vitamin D 25 Hydroxy 27.2 ng/mL
== END 2025-01-01 11:15 | disposition home or self-care (01) ==
PROVIDERS: PCP Family Medicine; Visit Provider Nurse Practitioner Adult Health
DX: R79.89 Other specified abnormal findings of blood chemistry (principal); I10 Essential (primary) hypertension; D64.9 Anemia, unspecified; R53.83 Other fatigue; Z79.890 Hormone replacement therapy; Z12.5 Encounter for screening for malignant neoplasm of prostate
CPT/HCPCS: 36415; 80053; 82306; 82607; 82746; 83540; 83550; 84153; 84443; G0103

== ENCOUNTER 2025-01-15 12:01 | Outpatient (CLI) | payer MEDICARE, SELFPAY ==
--- OUTSIDE RECORDS SUMMARY | 2025-01-15 12:33 | XMS_ITS | Clinical Summary ---
Author Organization [facility] [place] [address] Address [address] [place] [address] Care Team Providers Care Academic Hospitalist Name Role Phone Garrick Gray MD Primary [...] vaccine 65+ Completed 08/04/2020, 06/16 Insurance MEDICARE [facility] Address: [id number] [place] [address] COMMERCIAL GENERIC MEDICARE [facility] Address: [facility] [phone] [place] [address] COMMERCIAL GENERIC Care Teams Academic Hospitalist Relationship Specialty Start Date End Date Garrick Gray MD PCP - General Family Medicine 06/21/22
--- OUTSIDE RECORDS SUMMARY | 2025-01-15 12:34 | XMS_ITS | Referral Summary ---
Author Organization [facility] [place] [address] Address [address] [place] [address] Care Team Providers Care Pump Rebuilder Name Role Phone Garrick Gray MD Primary [...] of Treatment Not on file Insurance MEDICARE [employer] GENERIC MEDICARE COMMERCIAL GENERIC Care Teams Pump Rebuilder Relationship Specialty Start Date End Date Garrick Gray MD PCP - General Family Medicine 06/21/22
[2025-01-15 13:03] LABS: Basophils Absolute Auto 0.1 K/mm3 (0.0-0.1); Basophils Percent Auto 0.5 % (0.2-1.2); Eosinophils Absolute Auto 0.1 K/mm3 (0-0.3); Eosinophils Percent Auto 0.6 % (0-4.4); Hematocrit 53.8 % (42.0-52.0); Hemoglobin 17.6 g/dL (14.0-18.0); Immature Granulocyte Absolute 0.04 K/mm3 (0.00-0.031); Immature Granulocyte Percent A 0.4 % (0-0.5); Lymphocytes Absolute Auto 1.66 K/mm3 (0.9-3.2); Lymphocytes Percent Auto 17.2 % (18.3-44.2); Mean Corpuscular HGB Conc 32.7 g/dl (32-36); Mean Corpuscular Hemoglobin 31.6 pg (26-34); Mean Corpuscular Volume 96.6 fl (80-100); Mean Platelet Volume 10.1 fl (7.4-10.4); Monocytes Absolute Auto 1.1 K/mm3 (0.1-0.6); Monocytes Percent Auto 11.5 % (2.6-8.5); Neutrophils Absolute Auto 6.7 K/mm3 (1.3-6.7); Neutrophils Percent Auto 69.8 % (45.5-73.1); Platelet Count Result 161 k/mm3 (150-375); Red Blood Count 5.57 M/mm3 (4.6-6.20); Red Cell Distribution Width 13.5 % (11.5-14.5); White Blood Count 9.6 K/mm3 (4.5-10.0)
[2025-01-15 13:45] LABS: Prostate Specific Antigen 2.9 ng/mL (< OR = 4.0)
[2025-01-22 09:28] LABS: Testosterone Free 146.7 pg/mL (30.0-135.0); Testosterone Total 714 ng/dL (250-1100)
== END 2025-01-15 12:02 | disposition home or self-care (01) ==
PROVIDERS: PCP Family Medicine; Visit Provider Nurse Practitioner Adult Health
DX: R79.89 Other specified abnormal findings of blood chemistry (principal); Z12.5 Encounter for screening for malignant neoplasm of prostate; R71.8 Other abnormality of red blood cells
CPT/HCPCS: 36415; 84153; 84402; 84403; 85025; G0103

== ENCOUNTER 2025-08-20 10:16 | Outpatient (CLI) | payer MEDICARE, OTHER, SELFPAY ==
[2025-08-20 11:05] LABS: Hematocrit 51.9 % (42.0-52.0); Hemoglobin 17.2 g/dL (14.0-18.0)
--- OUTSIDE RECORDS SUMMARY | 2025-08-20 18:36 | XMS_ITS | Clinical Summary ---
Author Organization [facility] Address [address] [place] [address] Care Team Providers Care Wallpaper Installer Name Role Phone Garrick Gray MD Primary Care Provider [phone] Allergies Active Allergy Reactions Criticality Noted Date [...] on file Legal Sex Male 7:01 AM PATTERN CARRIER Gender Identity Not on file Sexual Orientation Not on file Last Filed Vital Signs Vital Sign Reading Time Taken Comments Blood Pressure 120/73 10/08/2022 8:25 AM PATTERN CARRIER Pulse 92 10/08/2022 8:25 AM PATTERN CARRIER Temperature 36.9 C (98.4 F) 10/08/2022 8:25 AM PATTERN CARRIER Respiratory Rate 20 10/08/2022 8:25 AM PATTERN CARRIER Oxygen Saturation 93% 10/08/2022 8:25 AM PATTERN CARRIER Inhaled Oxygen Concentration - - Weight 77.1 kg (170 lb) 10/08/2022 7:11 AM PATTERN CARRIER Height 170.2 cm (5' 7) 10/08/2022 7:11 AM PATTERN CARRIER Body Mass Index 26.63 10/08/2022 7:11 AM PATTERN CARRIER Plan of Treatment Health Maintenance Due Date Last Done Comments Colorectal Cancer Screening Colonoscopy (10 Years) 1953 Hepatitis C 1971 DTaP, Tdap and Td Vaccines ( 1 - Tdap) 1972 Pneumococcal Vaccine: 50+ Ye ars (1 of 2 - PCV) 1972 Zoster Vaccines (1 of 2) 2003 Annual Medicare Wellness Visit 2018 COVID-19 Vaccine (1 - 2024-2 6 season) 2025 Influenza Adult (#1) 2025 RSV Immunization or 60+ Years (1 - 1-dose 75+ series) 2028 Hepatitis A Vaccines Aged Out No long er eligible based on patient's age to complete this topic Meningococcal B Vaccine Aged Out No l onger eligible based on patient's age to complete this topic Meningococcal Vaccine Aged Out No sekou guero eligible based on patient's age to complete this topic RSV Immunizations Under 20 Months Aged Out No longer eligible based on patient's age to complete this topic Insurance MEDICARE [facility] INSURANCE Care Teams Wallpaper Installer Relationship Specialty Start Date End Date Garrick Gray MD [address] [place], [place] [id number] PCP - General FAMILY PRACTICE 10/08/22
--- OUTSIDE RECORDS SUMMARY | 2025-08-20 18:36 | XMS_ITS | Clinical Summary ---
Author Organization [facility] [place] [address] [facility] [address] [place] [address] Care Team Providers Care Mental Health Director Name Role Phone Garrick Gray MD Primary Care Provider [phone] Allergies Active Allergy Reactions Criticality Noted Date Comments Penicillins Other (See comments) 08/04/2025 Reported allergy from childhood; he does not know details Medications testosterone cypionate (DEPO-TESTOTERO NE) 200 mg/mL injection INJECT 1 ML INTO THE MUSCLE EVERY 2 WEEKS 2 Active sildenafiL (VIAGRA) 100 mg tablet TAKE 1 TABLET BY MOUTH ONCE DAILY NEEDED FOR SEXUAL ACTIVITY. ADMINISTER 30 MINUTES TO 4 HOURS BEFORE ACTIVITY 4 Active rosuvastatin (CRESTOR) 40 mg tablet TAKE 1 TABLET BY MOUTH EVERY DAY 90 tablet 2 5 Active aspirin 81 mg enteric coated tablet TAKE 1 TABLET BY MOUTH EVERY DAY 90 tablet 5 Active Active Problems No known active problems Encounters Date Type Department Care Team Description 08/04/2025 11:30 AM CDT Office Visit [facility] [address] [place] [address] Yoselin Zuñiga NP Abnormal stress test; Cigar smoker; Lipid screening from Last 3 Months Medical History Medical History Date Comments Low testosterone Family History Medical History Relation Name Comments Heart attack Father Relation Name Status Comments Father Mother Social History Tobacco Use Types Packs/Day Years Used Date Smoking Tobacco: Former Cigarettes Tobacco Cessation:Counseling Given: Not Answered Sex and Gender Information Value Date Recorded Sex Assigned at Not on file Legal Sex Male 10:20 AM CDT Gender Identity Not on file Sexual Orientation Not on file Last Filed Vital Signs Vital Sign Reading Time Taken Comments Blood Pressure 120/62 08/04/2025 11:32 AM CDT Pulse 92 08/04/2025 11:32 AM CDT Temperature - - Respiratory Rate 18 08/04/2025 11:32 AM CDT Oxygen Saturation 98% 08/04/2025 11:32 AM CDT Inhaled Oxygen Concentration - - Weight 78 kg (172 lb) 08/04/2025 11:32 AM CDT Height 170.2 cm (5' 7) 08/04/2025 11:32 AM CDT Body Mass Index 26.94 08/04/2025 11:32 AM CDT Plan of Treatment Health Maintenance Due Date Last Done Comments Colon Cancer Screening-Colonoscopy 1953 Depression Screening 1953 Fall Risk Assessment 1953 Hepatitis C Screening 1953 DTaP/Tdap/Td Vaccine (1 - Tdap) 1964 Hepatitis B Screening 1971 Zoster Vaccine (1 of 2) 2003 Abdominal Aortic Aneurysm (A AA) Screen 2018 Well Visit 65+ 2018 Covid-19 Vaccine (4 - 2024-2 6 season) 2025 09/26/2021, 01/11/2021, 12/21/2020 Influenza Vaccine (#1) 2025 , 08/04/2020, 07/11/2019, Additional history exists Pneumococcal vaccine 65+ Completed 08/04/2020, 06/16 Procedures Procedure Name Priority Date/Time Associated Diagnosis Comments POCT LIPID PANEL Routine 08/04/2025 11:3 4 AM CDT Lipid screening from Last 3 Months Results * (ABNORMAL) POCT lipid panel (08/04/2025 11:34 AM CDT) Cholesterol, POC 117 <200 MG/DL HDL, POC 31(A) >=40 mg/dL Triglycerides, POC 111 <=149 mg/dL LDL Cholesterol POC 64 <=129 mg/dL Chol/HDL Ratio, POC 2.1 NONE Non-HDL Cholesterol, POC 86 NONE mg/dL Cholesterol Total, POC 117 30 - 199 mg/dL Capillary blood 08/04/2025 1 1:34 AM CDT Yoselin Zuñiga NP POINT OF CARE TEST ORDERA BLES Final Result from Last 3 Months Insurance MEDICARE [facility] Care Teams Mental Health Director Relationship Specialty Start Date End Date Garrick Gray MD PCP - General Family Medicine 06/21/22
[2025-08-25 10:09] LABS: Free Testosterone (Direct) 11.6 pg/mL (6.6-18.1)
== END 2025-08-20 10:17 | disposition home or self-care (01) ==
LOC: ANHLAB 10:22
PROVIDERS: PCP Family Medicine; Visit Provider Nurse Practitioner Family
DX: R79.89 Other specified abnormal findings of blood chemistry (principal)
CPT/HCPCS: 36415; 84402; 84403; 85014; 85018